=== PATIENT | female | born 1990 | race American Indian/Alaskan Native ===

== ENCOUNTER 2016-11-25 12:22 | Emergency (ER) | payer SELFPAY | END 2016-11-25 12:30 | disposition left against medical advice (07) | LOC: ED 12:22 | DX: G43.909 Migraine, unspecified, not intractable, without status migrainosus (principal); H53.8 Other visual disturbances; Z53.21 Procedure and treatment not carried out due to patient leaving prior to being seen by health care provider ==

== ENCOUNTER 2016-11-25 18:20 | Emergency (ER) | payer MEDICAID ==
[2016-11-25 18:46] VITALS: BP 128/77
== END 2016-11-25 23:04 | disposition left against medical advice (07) ==
LOC: ED 18:20
DX: R11.0 Nausea (principal); R19.7 Diarrhea, unspecified; Z53.21 Procedure and treatment not carried out due to patient leaving prior to being seen by health care provider